=== PATIENT | female | born 1995 ===

== ENCOUNTER 2017-01-11 19:15 | Emergency (ER) | payer OTHER ==
[2017-01-11 19:28] VITALS: PULSE 78; TEMP 98.5; O2SAT 100
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
[2017-01-11 20:46] VITALS: BP 118/65; RESP 18
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
== END 2017-01-11 21:01 | disposition home or self-care (01) ==
LOC: C.ER 19:15
DX: S60.221A Contusion of right hand, initial encounter (principal); T14.8 Other injury of unspecified body region; V43.02XA Car driver injured in collision with other type car in nontraffic accident, initial encounter; Y92.410 Unspecified street and highway as the place of occurrence of the external cause

== ENCOUNTER 2017-04-01 16:54 | Emergency (ER) | payer OTHER ==
[2017-04-01 17:06] VITALS: BP 134/90; PULSE 74; TEMP 99.2; O2SAT 96
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
[2017-04-01 17:48] VITALS: RESP 18
== END 2017-04-01 17:48 | disposition home or self-care (01) ==
LOC: C.ER 16:54
DX: G43.909 Migraine, unspecified, not intractable, without status migrainosus (principal)
CPT/HCPCS: 96372; 99284; J2765; J3030